=== PATIENT | male | born 1970 | race African-American/Black ===

== ENCOUNTER 2016-10-05 16:57 | Emergency (ER) | payer OTHER | END 2016-10-05 18:25 | disposition home or self-care (01) | LOC: ER 16:57 | PROC: 0H91XZZ Drainage of Face Skin, External Approach (ICD-10-PCS; principal; 2016-10-05) | DX: L72.9 Follicular cyst of the skin and subcutaneous tissue, unspecified (principal); F17.210 Nicotine dependence, cigarettes, uncomplicated | CPT/HCPCS: 87070; 87205; 99284 ==